=== PATIENT | female | born 1980 | race Caucasian/White ===

== ENCOUNTER 2017-01-08 22:41 | Emergency (ER) | payer MEDICAID, OTHER ==
[~2017-01-08] VITALS: Ht 175.3 cm; Wt 63.5 kg
--- NOTE | 2017-01-08 23:25 | NUR ---
PATIENT WALKED INTO ER C/O LEFT CALF REDNESS AND SWELLING X2 DAYS
[2017-01-08 23:45] VITALS: BP 118/78
[2017-01-08] MEDS ORDERED: SULFAMETH/TRIMETH 800/160 MG TABLET PO ONE (23:45)
[2017-01-08] MEDS ORDERED: CEPHALEXIN MONOHYDRATE 500 MG CAPSULE PO ONE (23:45)
--- NOTE | 2017-01-08 23:46 | NUR ---
Patient discharged to home in stable conditon WITH TAKING PATIENT. Written and verbal after care instructions given. Patient verbalizes understanding of instructions. WALKED OUT OF ER WITH STEADY GAIT
[2017-01-08] MEDS ORDERED: SULFAMETH/TRIMETH 800/160 MG TABLET ONE (23:48)
[2017-01-08] MEDS ORDERED: CEPHALEXIN MONOHYDRATE 500 MG CAPSULE ONE (23:48)
== END 2017-01-08 23:47 | disposition home or self-care (01) ==
LOC: ER 22:41
DX: L03.116 Cellulitis of left lower limb (principal); F10.20 Alcohol dependence, uncomplicated; F17.200 Nicotine dependence, unspecified, uncomplicated; F12.10 Cannabis abuse, uncomplicated
CPT/HCPCS: 99283; A4663

== ENCOUNTER 2017-01-10 20:28 | Inpatient (IN) | payer OTHER ==
[~2017-01-10] VITALS: Ht 175.3 cm; Wt 62.1 kg
[2017-01-10] MEDS ORDERED: SULF1TAB48 PO (20:50)
[2017-01-10] MEDS ORDERED: CEPH-570 PO (20:50)
[2017-01-10] MEDS ORDERED: ONDANSETRON IV *ER 4 MG/2 ML VIAL IV ONE (21:00)
[2017-01-10] MEDS ORDERED: OXYCODONE/APAP 5-325 MG TABLET PO ONE (21:00)
[2017-01-10] MEDS ORDERED: VANCOMYCIN IV 1,000 MG in IV DEXTROSE 5% 250 ML IV ONE (21:00)
[2017-01-10 21:17] LABS: BASOPHILS % (AUTO) 0.3 % (0.0-2.0); EOSINOPHILS # (AUTO) 0.1 K/uL (0.0-0.7); EOSINOPHILS % (AUTO) 0.9 % (0.0-7.0); HEMATOCRIT 34.9 % (37-47); HEMOGLOBIN 11.8 G/DL (12.0-16.0); LYMPHOCYTES % (AUTO) 12.8 % (20.5-51.5); MEAN CORPUSCULAR HEMOGLOBIN 27.9 UUG (27.0-31.0); MEAN CORPUSCULAR HGB CONC 34 g/dL (32.0-37.0); MEAN CORPUSCULAR VOLUME 82.3 FL (81.0-99.0); MONOCYTES # (AUTO) 0.6 K/UL (0.1-1.30); MONOCYTES % (AUTO) 7.5 % (0.0-11.0); NEUTROPHILS # (AUTO) 5.8 K/UL (1.8-8.9); NEUTROPHILS % (AUTO) 78.5 % (38.5-71.5); PLATELET COUNT (AUTO) 229 K/UL (150-450); RED BLOOD CELL COUNT(AUTO) 4.24 MIL/UL (4.2-5.4); WHITE BLOOD COUNT (AUTO) 7.5 K/UL (4.0-11.2)
[2017-01-10] MEDS ORDERED: OXYCODONE/APAP 5-325 MG TABLET ONE (21:24)
[2017-01-10] MEDS ORDERED: ONDANSETRON 4 MG/2 ML VIAL ONE (21:24)
[2017-01-10] MEDS ORDERED: VANCOMYCIN IV 200 ML ONE (21:24)
[2017-01-10 21:27] LABS: POTASSIUM 3.7 mmol/L (3.5-5.1)
--- NOTE | 2017-01-10 21:30 | NUR ---
PATIENT WALKED INTO ER FOR C/O WORSENING REDNESS AND SWELLING ON LEFT CALF AREA WITH PAIN THAT STARTED ON 01/06/17
[2017-01-10 21:32] LABS: BILIRUBIN,DIRECT 0.2 mg/dL (0.0-0.2); BILIRUBIN,TOTAL 0.7 mg/dL (0.2-1.0); TOTAL PROTEIN, SERUM 7.2 g/dL (6.4-8.2)
--- NOTE | 2017-01-10 21:39 | NUR ---
TRANSFERED TO 2ND FLOOR MED SURG VIA WHEELCHAIR
--- NOTE | 2017-01-10 21:40 | NUR ---
ADMITTED PATIENT TO MED SURG UNIT UNDER THE CARE OF LOGAN BROOKS, WITH ORDER.
[2017-01-10] MEDS ORDERED: ACETAMINOPHEN 325 MG TABLET PO PRN (22:00)
[2017-01-10] MEDS ORDERED: Z GUARD REMEDY PASTE 57 GM TUBE TOP PRN (22:00)
[2017-01-10] MEDS ORDERED: ZOLPIDEM 5 MG TABLET PO PRN (22:00)
[2017-01-10] MEDS ORDERED: ONDANSETRON 4 MG/2 ML VIAL IV PRN (22:00)
[2017-01-10 22:05] VITALS: BP 119/69
[2017-01-10] MEDS: IV NS 1000 ML 1,000 ML IV PRN (22:48)
[2017-01-11 06:02] VITALS: BP 103/68
--- NOTE | 2017-01-11 06:31 | NUR ---
PATIENT ASLEEP BUT EASILY AROUSABLE, NO SOB NO CHEST PAIN NOTED, NO COMPLAIN OF PAIN ON CELLULITIS SITE, VOIDING FREELY, NO S/S OF DISTRESS.
[2017-01-11 07:05] LABS: BASOPHILS % (AUTO) 0.4 % (0.0-2.0); EOSINOPHILS # (AUTO) 0.1 K/uL (0.0-0.7); EOSINOPHILS % (AUTO) 1.8 % (0.0-7.0); HEMATOCRIT 31.2 % (37-47); HEMOGLOBIN 10.9 G/DL (12.0-16.0); LYMPHOCYTES # (AUTO) 1.1 K/UL (0.8-4.8); LYMPHOCYTES % (AUTO) 19.2 % (20.5-51.5); MEAN CORPUSCULAR HEMOGLOBIN 28.7 UUG (27.0-31.0); MEAN CORPUSCULAR HGB CONC 35 g/dL (32.0-37.0); MEAN CORPUSCULAR VOLUME 82.4 FL (81.0-99.0); MONOCYTES # (AUTO) 0.6 K/UL (0.1-1.30); MONOCYTES % (AUTO) 10.3 % (0.0-11.0); NEUTROPHILS # (AUTO) 4.1 K/UL (1.8-8.9); NEUTROPHILS % (AUTO) 68.3 % (38.5-71.5); PLATELET COUNT (AUTO) 183 K/UL (150-450); RED BLOOD CELL COUNT(AUTO) 3.78 MIL/UL (4.2-5.4); WHITE BLOOD COUNT (AUTO) 5.9 K/UL (4.0-11.2)
[2017-01-11 07:28] LABS: BILIRUBIN,TOTAL 0.6 mg/dL (0.2-1.0); CREATININE 0.9 mg/dL (0.6-1.3); MAGNESIUM 1.7 mg/dL (1.8-2.4); PHOSPHOROUS 4.2 mg/dL (2.5-4.9); POTASSIUM 4.2 mmol/L (3.5-5.1); TOTAL PROTEIN, SERUM 6.3 g/dL (6.4-8.2)
[2017-01-11 08:36] LABS: IRON, SERUM 22 ug/dL (50-175)
[2017-01-11 09:03] LABS: FERRITIN 35 ng/mL (8-252)
[2017-01-11] MEDS ORDERED: MAGNESIUM OXIDE 400 MG TABLET PO ONE (10:00)
[2017-01-11] MEDS: MAGNESIUM SULFATE/D5W 100 ML IV SCH ×2 (10:27→11:00)
[2017-01-11] MEDS: HYDROCODONE/APAP 10-325 MG TABLET PO PRN ×2 (10:36→20:59)
[2017-01-11] MEDS: VANCOMYCIN IV 1 G in PREMIXED 0 EACH IV SCH (10:38)
--- NOTE | 2017-01-11 11:18 | NUR ---
Clinical pharmacy note-Vancomycin dosing per pharmacy Subjective: To start Vancomycin dosing on this 36 yo female patient for cellulitis of left lower leg patient received vancomycin 1gm IVPB x1 in ED on 01/10 at 2100 Objective: BUN 20 Scr 0.9 WBC 5.9 Temp 97.9 ht 69'' wt 137 lb Assessment/Plan: Will start Vancomycin 1gm IVPB q14hr for predicted vancomycin trough level of 15 mcg/ml at steady state. 2nd dose is due today at 1100. Plan to draw vancomycin trough level before 4th dose (level not yet ordered). Will monitor renal function closely to adjust the dose if needed. Will follow daily.
[2017-01-11 12:00] VITALS: BP 105/74
[2017-01-11 16:12] VITALS: BP 96/67
[2017-01-11] MEDS: IV NS 1000 ML 1,000 ML IV PRN (17:48)
--- NOTE | 2017-01-11 18:11 | NUR ---
Patient in bed sleeping during the day. No s/s of distress noted. C/O of moderate pain in the left leg, medicated as ordered for comfort. CT scan was done in her leg for possible drainage. Safety and comfort provided during the day. Safety and comfort provided. Will continue monitoring.
[2017-01-11 19:00] VITALS: BP 100/65
[2017-01-12] MEDS: VANCOMYCIN IV 1 G in PREMIXED 0 EACH IV SCH ×2 (00:33→14:41)
[2017-01-12] MEDS: IV NS 1000 ML 1,000 ML IV PRN ×2 (02:38→06:36)
[2017-01-12 04:00] VITALS: BP 107/57
[2017-01-12 06:53] LABS: BASOPHILS % (AUTO) 0.3 % (0.0-2.0); EOSINOPHILS # (AUTO) 0.1 K/uL (0.0-0.7); EOSINOPHILS % (AUTO) 2.3 % (0.0-7.0); HEMATOCRIT 32.3 % (37-47); HEMOGLOBIN 11.2 G/DL (12.0-16.0); LYMPHOCYTES # (AUTO) 1.3 K/UL (0.8-4.8); LYMPHOCYTES % (AUTO) 23.9 % (20.5-51.5); MEAN CORPUSCULAR HEMOGLOBIN 28.5 UUG (27.0-31.0); MEAN CORPUSCULAR HGB CONC 35 g/dL (32.0-37.0); MEAN CORPUSCULAR VOLUME 82.3 FL (81.0-99.0); MONOCYTES # (AUTO) 0.3 K/UL (0.1-1.30); NEUTROPHILS # (AUTO) 3.9 K/UL (1.8-8.9); NEUTROPHILS % (AUTO) 67.5 % (38.5-71.5); PLATELET COUNT (AUTO) 239 K/UL (150-450); RED BLOOD CELL COUNT(AUTO) 3.93 MIL/UL (4.2-5.4); WHITE BLOOD COUNT (AUTO) 5.6 K/UL (4.0-11.2)
[2017-01-12 07:27] LABS: CREATININE 0.6 mg/dL (0.6-1.3); POTASSIUM 3.9 mmol/L (3.5-5.1)
[2017-01-12] MEDS: HYDROCODONE/APAP 10-325 MG TABLET PO PRN (08:13)
[2017-01-12 11:42] VITALS: BP 104/66
[2017-01-12] MEDS: FERROUS SULFATE 325 MG TABEC PO SCH (15:09)
[2017-01-12 15:36] VITALS: BP 102/65
--- NOTE | 2017-01-12 15:43 | NUR ---
Clinical pharmacy note-Vancomycin dosing per pharmacy Subjective: To continue Vancomycin dosing on this 36 yo female patient for cellulitis of left lower leg Subjective: BUN 6 Scr 0.6 WBC 5.6 Temp 98.6 ht 69'' wt 137 lb Assessment/Plan: Since renal function is significantly improved(scr 0.6 vs 0.9), will change dose to 1 gram IV every 10 hrs(first dose today at 1400) and draw trough by 4th dose(not ordered yet) for expected trough around 15. Will monitor renal function closely to adjust the dose if needed. Will follow daily.
--- NOTE | 2017-01-12 18:18 | NUR ---
PATIENT BEEN IN BED AWAKE DURING THE DAY. NO S/S OF DISTRESS NOTED. C/O OF PAIN DURING THE MORNING, MEDICATED ORDERED. PATIENT REFUSED TO BE CONNECTED TO THE FLUIDS STATING THAT SHE IS TIRING OF BEING IN THE ROOM AND SHE WANTS TO WALK AROUND. PATIENT IS AT THE ROOM NOW IN SAFE CONDITION. IV INTACT, FLUIDS ARE RUNNING. NO PAIN AT THE MOMENT. SAFETY AND COMFORT PROVIDED. WILL CONTINUE MONITORING.
[2017-01-12 20:21] VITALS: BP 121/83
--- NOTE | 2017-01-12 22:50 | NUR ---
Received report from SIOMARA Lala
--- NOTE | 2017-01-12 22:55 | NUR ---
Received patient on bed, awake, Denies any pain/discomforts at this time. Continue to monitor.
[2017-01-13] MEDS: VANCOMYCIN IV 1 G in PREMIXED 0 EACH IV SCH ×2 (00:05→09:22)
[2017-01-13 06:30] VITALS: BP 111/75
--- NOTE | 2017-01-13 06:31 | NUR ---
Slept well. No complaint presented. All needs attended and met. Continue care as planned.
[2017-01-13 07:15] LABS: CREATININE 0.7 mg/dL (0.6-1.3); MAGNESIUM 1.9 mg/dL (1.8-2.4); PHOSPHOROUS 4.7 mg/dL (2.5-4.9); POTASSIUM 4.2 mmol/L (3.5-5.1)
[2017-01-13 07:17] LABS: BASOPHILS % (AUTO) 0.4 % (0.0-2.0); EOSINOPHILS # (AUTO) 0.1 K/uL (0.0-0.7); EOSINOPHILS % (AUTO) 2.8 % (0.0-7.0); HEMATOCRIT 32.7 % (37-47); HEMOGLOBIN 11.2 G/DL (12.0-16.0); LYMPHOCYTES # (AUTO) 1.5 K/UL (0.8-4.8); MEAN CORPUSCULAR HEMOGLOBIN 28.8 UUG (27.0-31.0); MEAN CORPUSCULAR HGB CONC 34 g/dL (32.0-37.0); MEAN CORPUSCULAR VOLUME 83.6 FL (81.0-99.0); MONOCYTES # (AUTO) 0.4 K/UL (0.1-1.30); MONOCYTES % (AUTO) 8.2 % (0.0-11.0); NEUTROPHILS # (AUTO) 2.9 K/UL (1.8-8.9); NEUTROPHILS % (AUTO) 57.6 % (38.5-71.5); PLATELET COUNT (AUTO) 226 K/UL (150-450); WHITE BLOOD COUNT (AUTO) 4.9 K/UL (4.0-11.2)
[2017-01-13] MEDS: FERROUS SULFATE 325 MG TABEC PO SCH (09:22)
[2017-01-13 12:09] VITALS: BP 106/63
--- NOTE | 2017-01-13 15:09 | NUR ---
PATIENT BEEN DISCHARGE HOME IN SAVE AND STABLE CONDITION. NO S/S OF DISTRESS NOTED. NO C/O OF PAIN TODAY. DR. BROOKS DISCHARGED PATIENT BUT HE SPECIFIED NOT TO DISCHARGE AFTER HE TALKED TO HER. AT 1400 PATIENT ASKED TO REMOVED THE IV CAUSE SHE WANTED TO LEAVE AT THAT MOMENT, AND SHE DOES NOT WANT TO WAIT ANYMORE. NOTIFIED DR. BROOKS AND SAID TO DISCHARGE AND HE WILL CALL HER TO FOLLOW. DISCHARGE INSTRUCTIONS WERE EXPLAINED AND SIGNED. ALL BELONGINGS WERE TAKEN. PHOTO FROM HER LL WAS TAKEN AND PLACED AT THE CHART. PATIENT LEFT AT [phone] ACCOMPANIED BY SIOMARA VILLAGOMEZ. PATIENT SAID A FRIEND WILL PICK HER UP.
--- NOTE | 2017-01-13 15:10 | NUR ---
Clinical pharmacy note-Vancomycin dosing per pharmacy Subjective: To continue Vancomycin dosing on this 36 yo female patient for cellulitis of left lower leg Subjective: BUN 9 Scr 0.7 WBC 4.9 Temp 98.6 ht 69'' wt 137 lb Assessment/Plan: Since renal function is stable, will continue 1 gram IV every 10 hrs(third dose today at 0922) and draw trough by 4th dose( ordered tonight at 1930) for expected trough around 15 if patient not discharged. Will monitor renal function closely to adjust the dose if needed. Will follow daily.
== END 2017-01-13 14:28 | disposition home or self-care (01) | DRG 383 ==
LOC: ER 20:29 → MED 21:27
PROVIDERS: ADMIT Nurse Practitioner Acute Care; ATTEND Nurse Practitioner Acute Care
DX: L03.116 Cellulitis of left lower limb (principal); E83.42 Hypomagnesemia; D64.9 Anemia, unspecified; S80.862A Insect bite (nonvenomous), left lower leg, initial encounter; F17.200 Nicotine dependence, unspecified, uncomplicated; W57.XXXA Bitten or stung by nonvenomous insect and other nonvenomous arthropods, initial encounter; Y93.9 Activity, unspecified; Y92.9 Unspecified place or not applicable; Z71.6 Tobacco abuse counseling; M54.9 Dorsalgia, unspecified; Z87.440 Personal history of urinary (tract) infections; Z98.890 Other specified postprocedural states; F12.929 Cannabis use, unspecified with intoxication, unspecified
CPT/HCPCS: 36415; 73700; 83550; 83735; 83921; 84100; 84443; 85025; 85730; 87040; A4663; J2405; J3370; J3475; J7030

== ENCOUNTER 2022-12-17 01:13 | Emergency (ER) | payer OTHER ==
[~2022-12-17] VITALS: Ht 175.3 cm; Wt 70.3 kg
[~2022-12-17 01:13] MED LIST: CEPH-570 PO; SULF1TAB48 PO
[2022-12-17] MEDS ORDERED: SULF1TAB48 PO (02:01)
--- NOTE | 2022-12-17 02:06 | NUR ---
Wound swab sent to Lab for culture
--- NOTE | 2022-12-17 02:11 | NUR ---
1) Patient left alone - drove herself here. 2) Clinically stable, no sign of distress observed.
[2022-12-17 02:13] VITALS: BP 122/78
== END 2022-12-17 02:14 | disposition home or self-care (01) ==
LOC: ER 01:13
DX: L98.499 Non-pressure chronic ulcer of skin of other sites with unspecified severity (principal); L08.9 Local infection of the skin and subcutaneous tissue, unspecified; Z87.891 Personal history of nicotine dependence; Z79.899 Other long term (current) drug therapy
CPT/HCPCS: A4663

== ENCOUNTER 2023-01-16 05:12 | Emergency (ER) | payer OTHER ==
[~2023-01-16] VITALS: Ht 170.2 cm; Wt 71.2 kg
--- NOTE | 2023-01-16 05:22 | NUR ---
Dr Manzo at bedside, MSE in progress
[2023-01-16] MEDS ORDERED: CLINDAMYCIN HCL 300 MG CAPSULE ONE (05:27)
[2023-01-16] MEDS ORDERED: CLINDAMYCIN HCL 150 MG CAPSULE PO ONE (05:30)
[2023-01-16] MEDS ORDERED: CLIN300C12 PO (05:34)
--- NOTE | 2023-01-16 05:40 | NUR ---
Patient discharged to home in stable condition. Written and verbal after care instructions given. Patient verbalizes understanding of instructions. Stressed follow up or return to ER for worsening s/s. Patient is a/ox4, NAD noted. Patient ambulated with steady gait
[2023-01-16 05:51] VITALS: BP 110/67
== END 2023-01-16 05:52 | disposition home or self-care (01) ==
LOC: ER 05:12
DX: O26.891 Other specified pregnancy related conditions, first trimester (principal); L98.9 Disorder of the skin and subcutaneous tissue, unspecified; Z87.891 Personal history of nicotine dependence; Z79.899 Other long term (current) drug therapy; Z3A.13 13 weeks gestation of pregnancy
CPT/HCPCS: A4663

== ENCOUNTER 2023-04-17 21:54 | Emergency (ER) | payer OTHER ==
[~2023-04-17] VITALS: Ht 170.2 cm; Wt 72.6 kg
[~2023-04-17 21:54] MED LIST changes: +CLIN300C12 PO
[2023-04-17 22:46] VITALS: BP 135/85; TEMP 98; O2SAT 98
== END 2023-04-17 22:49 | disposition home or self-care (01) ==
LOC: ER 21:56
DX: O34.219 Maternal care for unspecified type scar from previous cesarean delivery (principal); F17.210 Nicotine dependence, cigarettes, uncomplicated; Z79.2 Long term (current) use of antibiotics; Z79.899 Other long term (current) drug therapy
CPT/HCPCS: A4663